=== PATIENT | female | born 1985 | race Caucasian/White ===

== ENCOUNTER 2020-09-11 15:10 | Emergency (ER) | payer MEDICAID ==
[~2020-09-11] VITALS: Ht 157.5 cm; Wt 54.4 kg
[2020-09-11 15:21] VITALS: BP 110/54
--- NOTE | 2020-09-11 15:21 | NUR ---
Patient to bed 12. RN evaluating the patient at bedside.
--- NOTE | 2020-09-11 15:39 | NUR ---
Dr. Diggs is evaluating the patient at bedside.
[2020-09-11 17:03] VITALS: BP 116/68
--- NOTE | 2020-09-11 17:04 | NUR ---
Patient discharged with v/s stable, IN NAD, AAOX4. Written and verbal after care instructions given and explained. Patient alert, oriented and verbalized understanding of instructions. Ambulatory with steady gait. All questions addressed prior to discharge. ID band removed, NO IV ACCESS THIS VISIT. Patient advised to follow up with PMD. Rx of AUGMENTIN given. Patient educated on indication of medication including possible reaction and side effects. Opportunity to ask questions provided and answered.
== END 2020-09-11 17:01 | disposition home or self-care (01) ==
LOC: MED 15:10
DX: N75.0 Cyst of Bartholin's gland (principal)
CPT/HCPCS: 76856; 81002; 81025; 99284